=== PATIENT | female | born 1985 | race African-American/Black ===

== ENCOUNTER 2017-10-15 23:43 | Emergency (ER) | payer OTHER ==
[~2017-10-15] VITALS: Ht 165.1 cm; Wt 59.0 kg
[~2017-10-15 23:43] MED LIST: AZITHROMYCIN 2250 MG PO; BACTRIM DS TAB1 EACH PO; BENADRYL25 MG PO; CELEBREX 200 M200 M1 PO; CLARITIN10 MG PO; CLEOCIN HCL150 MG PO; CLEOCIN HCL300 MG PO; CLINDAMYCIN HC150 MG PO; DIAZEPAM 10 MG10 M2 PO; ERYTHROMYCIN500 MG PO; IBUPROFEN 200200 M1 PO; IBUPROFEN 600600 M1 PO; MACROBID 100 M100 M1 PO; METHADONE HCL 110 M1 PO; NOHOMEMEDICATIONS; NORCO 5-325 TA1 EACH PO; NORTRIPTYLINE H50 M3 PO; OXYCODONE HCL 55 MG PO; OXYCODONE HCL10 MG PO; OXYCONTIN15 MG PO; OXYCONTIN20 M1 PO; PEPCID40 MG PO; PERCOCET 10-321 EACH PO; PERCOCET 5-3251 EACH PO; PERCOCET PO; PHENERGAN 25 MG25 M1 PO; PREDNISONE 20 M20 MG PO; TRAMADOL 50 MG50 MG PO; ULTRAM 50MG TAB50 MG PO; ZPAK PO
[2017-10-16 00:15] LABS: URINE BILIRUBIN NEGATIVE (Negative); URINE BLOOD NEGATIVE (Negative); URINE CLARITY SL CLOUDY; URINE COLOR YELLOW; URINE GLUCOSE-RANDOM* NEGATIVE (Negative); URINE KETONES NEGATIVE (Negative); URINE NITRITE-REFLEX NEGATIVE (Negative); URINE PROTEIN (DIPSTICK) NEGATIVE (Negative); URINE UROBILINOGEN 0.2 E.U./dl (0.2-1.0)
[2017-10-16 00:17] LABS: URINE LEUKOCYTES-REFLEX TRACE (Negative)
[2017-10-16] MEDS ORDERED: ULTRAM 50MG TAB50 MG PO (01:09)
[2017-10-16 01:38] VITALS: BP 124/76
[2017-10-17 14:10] LABS: NEISSERIA GONORRHEA-PCR Negative (Negative)
[2017-10-17] MEDS ORDERED: ULTRAM 50MG TAB50 MG PO (22:01)
== END 2017-10-16 01:40 | disposition home or self-care (01) ==
LOC: ER 23:43
PROVIDERS: Emergency Medicine
DX: R10.2 Pelvic and perineal pain (principal); F17.210 Nicotine dependence, cigarettes, uncomplicated; Z88.5 Allergy status to narcotic agent; Z88.0 Allergy status to penicillin; Z88.6 Allergy status to analgesic agent; Z88.8 Allergy status to other drugs, medicaments and biological substances

== ENCOUNTER 2017-10-26 03:47 | Emergency (ER) | payer OTHER ==
[~2017-10-26] VITALS: Ht 165.1 cm; Wt 59.0 kg
[2017-10-26 03:59] LABS: ABSOLUTE NEUTROPHILS 4.1 thou/uL (1.4-8.2); BASOPHILS 0.9 % (0.0-2.0); EOSINOPHILS 0.9 % (0.0-3.0); HEMATOCRIT 40.5 % (37.0-47.0); HEMOGLOBIN 13.8 gm/dL (12.0-15.0); LYMPHOCYTES 33.4 % (24.0-44.0); MCH 33.8 pg (26.0-34.0); MCV 99.4 fL (80.0-100.0); MONOCYTES 6.1 % (1.0-8.0); PLATELET COUNT 384 thou/uL (150-400); POLYS 58.7 % (36.0-66.0); RBC 4.07 mil/uL (4.20-5.00); RDW 13.5 % (10.5-14.5); WBC 7.1 thou/uL (4.0-11.0)
[2017-10-26 04:06] LABS: CALCIUM 9.2 mg/dL (8.5-10.1); CREATININE 0.8 mg/dL (0.6-1.0); POTASSIUM 3.7 mmol/L (3.5-5.1)
[2017-10-26 05:03] LABS: URINE BILIRUBIN NEGATIVE (Negative); URINE BLOOD NEGATIVE (Negative); URINE CLARITY CLEAR; URINE COLOR YELLOW; URINE GLUCOSE-RANDOM* NEGATIVE (Negative); URINE KETONES 1+ (Negative); URINE LEUKOCYTES-REFLEX NEGATIVE (Negative); URINE NITRITE-REFLEX NEGATIVE (Negative); URINE PROTEIN (DIPSTICK) NEGATIVE (Negative); URINE SPECIFIC GRAVITY 1.025 (1.005-1.035); URINE UROBILINOGEN 0.2 E.U./dl (0.2-1.0)
[2017-10-26 05:11] LABS: AMP/METHAMP Negative (Negative); BARBITURATES Negative (Negative); BENZODIAZEPINES POSITIVE (Negative); COCAINE Negative (Negative); METHADONE Negative (Negative); OPIATES POSITIVE (Negative); PCP Negative (Negative)
[2017-10-26 06:56] VITALS: BP 138/92
== END 2017-10-26 06:57 | disposition home or self-care (01) ==
LOC: ER 03:47
PROVIDERS: Emergency Medicine
DX: R10.9 Unspecified abdominal pain (principal); R41.82 Altered mental status, unspecified; F17.210 Nicotine dependence, cigarettes, uncomplicated; Z88.0 Allergy status to penicillin; Z88.1 Allergy status to other antibiotic agents; Z88.5 Allergy status to narcotic agent

== ENCOUNTER 2018-07-13 06:12 | Emergency (ER) | payer OTHER ==
[~2018-07-13] VITALS: Ht 165.1 cm; Wt 59.0 kg
[2018-07-13] MEDS ORDERED: TRAZODONE HCL100 MG PO (06:31)
[2018-07-13] MEDS ORDERED: BUTALB-APAP-CA1 EACH PO (09:03)
[2018-07-13 09:35] VITALS: BP 130/88
== END 2018-07-13 09:40 | disposition home or self-care (01) ==
LOC: ER 06:12
DX: G44.209 Tension-type headache, unspecified, not intractable (principal); F17.210 Nicotine dependence, cigarettes, uncomplicated; G89.29 Other chronic pain; M25.551 Pain in right hip; F31.9 Bipolar disorder, unspecified; F41.9 Anxiety disorder, unspecified; Z88.5 Allergy status to narcotic agent; Z88.8 Allergy status to other drugs, medicaments and biological substances; Z88.1 Allergy status to other antibiotic agents; Z88.0 Allergy status to penicillin

== ENCOUNTER 2019-07-17 09:46 | Emergency (ER) | payer OTHER ==
[~2019-07-17] VITALS: Ht 167.6 cm; Wt 62.6 kg
[~2019-07-17 09:46] MED LIST changes: +BUTALB-APAP-CA1 EACH PO; +TRAZODONE HCL100 MG PO
[2019-07-17 10:42] LABS: HEMATOCRIT 37.4 % (37.0-47.0); HEMOGLOBIN 12.5 gm/dL (12.0-15.0); MCH 32.8 pg (26.0-34.0); MCHC 33.4 g/dL (28.0-37.0); MCV 98.1 fL (80.0-100.0); PLATELET COUNT 306 thou/uL (150-400); RBC 3.82 mil/uL (4.20-5.00); RDW 13.6 % (10.5-14.5); WBC 5.4 thou/uL (4.0-11.0)
[2019-07-17 10:50] LABS: ANION GAP 10 mmol/L (7-16); BUN 14 mg/dL (7-18); CALCIUM 9.2 mg/dL (8.5-10.1); CHLORIDE 106 mmol/L (98-107); CO2 25 mmol/L (21-32); CREATININE 0.8 mg/dL (0.6-1.0); GLUCOSE 87 mg/dL (74-106); SODIUM 141 mmol/L (136-145)
[2019-07-17 11:00] LABS: ALBUMIN 3.7 g/dL (3.4-5.0); SGOT 16 U/L (15-37); SGPT 27 U/L (30-65); TOTAL PROTEIN 7.2 g/dL (6.4-8.2); TROPONIN-I <0.06 ng/mL (<0.06)
[2019-07-17 11:01] LABS: ABSOLUTE NEUTROPHILS 2.4 thou/uL (1.4-8.2); ANISOCYTOSIS SLIGHT
[2019-07-17 11:15] LABS: TOTAL BILIRUBIN 0.1 mg/dL (<0.1-1.0)
[2019-07-17] MEDS ORDERED: TRAMADOL 50 MG50 MG PO (11:46)
[2019-07-17] MEDS ORDERED: TESSALON PERLE100 MG PO (11:46)
[2019-07-17] MEDS ORDERED: NAPROSYN500 MG PO (11:46)
[2019-07-17 12:54] VITALS: BP 117/80
--- NOTE | 2019-07-17 16:10 | EKG ---
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
== END 2019-07-17 12:57 | disposition home or self-care (01) ==
LOC: ER 09:46
PROVIDERS: Emergency Medicine
DX: S00.81XA Abrasion of other part of head, initial encounter (principal); J11.1 Influenza due to unidentified influenza virus with other respiratory manifestations; F31.9 Bipolar disorder, unspecified; F41.9 Anxiety disorder, unspecified; F17.210 Nicotine dependence, cigarettes, uncomplicated; Z88.5 Allergy status to narcotic agent; Z88.1 Allergy status to other antibiotic agents; Z88.0 Allergy status to penicillin; V43.52XA Car driver injured in collision with other type car in traffic accident, initial encounter; Y92.89 Other specified places as the place of occurrence of the external cause; Y93.89 Activity, other specified; Y99.8 Other external cause status

== ENCOUNTER 2019-12-02 18:54 | Emergency (ER) | payer OTHER ==
[~2019-12-02] VITALS: Ht 167.6 cm; Wt 59.0 kg
[~2019-12-02 18:54] MED LIST changes: +NAPROSYN500 MG PO; +TESSALON PERLE100 MG PO
[2019-12-02 20:25] VITALS: BP 114/73
== END 2019-12-02 20:27 | disposition home or self-care (01) ==
LOC: ER 18:54
DX: G89.29 Other chronic pain (principal); M25.551 Pain in right hip; M79.604 Pain in right leg; F17.210 Nicotine dependence, cigarettes, uncomplicated; Z79.899 Other long term (current) drug therapy; Z88.6 Allergy status to analgesic agent; Z88.8 Allergy status to other drugs, medicaments and biological substances; Z88.1 Allergy status to other antibiotic agents; Z88.0 Allergy status to penicillin

== ENCOUNTER → 2020-07-28 | Outpatient (CLI) | payer OTHER | LOC: LAB 12:17 | PROVIDERS: ATTEND Nurse Practitioner | DX: Z20.828 Contact with and (suspected) exposure to other viral communicable diseases (principal) ==

== ENCOUNTER → 2021-09-19 | Outpatient (CLI) | payer OTHER | LOC: RAD 12:12 | PROVIDERS: ATTEND Family Medicine | DX: M25.551 Pain in right hip (principal) ==